=== PATIENT | female | born 2005 | race Hispanic/Latino ===

== ENCOUNTER 2025-04-04 22:45 | Emergency (ER) | payer SELFPAY ==
[~2025-04-04] VITALS: Ht 154.9 cm; Wt 68.2 kg
[2025-04-04 23:04] VITALS: PULSE 107; RESP 16; TEMP 99.1; O2SAT 98
[2025-04-04] MEDS ORDERED: IBUPROFEN400 MG PO (23:11)
[2025-04-04] MEDS ORDERED: CEPHALEXIN500 MG PO (23:11)
== END 2025-04-04 23:26 | disposition home or self-care (01) ==
LOC: ER 22:48
DX: M79.674 Pain in right toe(s) (principal); L60.0 Ingrowing nail
CPT/HCPCS: 99283